=== PATIENT | male | born 1955 | race Caucasian/White ===

== ENCOUNTER 2017-09-18 16:27 | Emergency (ER) | payer MEDICARE, BC ==
[2017-09-18 17:08] VITALS: BP 175/106
--- NOTE | 2017-09-18 18:13 | EDM.PDOC ---
ED HPI GENERAL MEDICAL PROBLEM - General Chief Complaint: General Stated Complaint: EDEMA,HANDS, FEET Time Seen by Provider: 09/18/17 18:00 Source of Information: Reports: Patient, Family, RN Notes Reviewed History Limitations: Reports: No Limitations - History of Present Illness INITIAL COMMENTS - FREE TEXT/NARRATIVE: 62-year-old gentleman presents emergency department today complaint of bilateral leg swelling and bilateral hand swelling he recently had surgery done on 10 September for rotator cuff states he did not receive much fluids postoperatively he's done well postoperatively new Medication of hydrocodone which he is using for pain control he also complains of some shortness of breath and tightness in the chest Generalized Pain Score (Numeric/FACES): 7 - Related Data Allergies Allergy/AdvReac Type Severity Reaction Status Date / Time No Known Allergies Allergy Verified 05/25/16 07:56 Home Meds: Home Meds Acetaminophen with Codeine [Tylenol with Codeine #3 Tablet] 1 - 2 tab PO Q4HR PRN 06/03/15 [History] Albuterol [Proair HFA] 2 puff INH QID PRN 06/03/15 [History] Ibuprofen 800 mg PO TID 06/03/15 [History] Mometasone Furoate [Nasonex] 2 sprays NASLF DAILY PRN 06/03/15 [History] Niacin 1,000 mg PO DAILY 06/03/15 [History] Matthews-3 Fatty Acids [Matthews-3] 3,000 mg PO DAILY 06/03/15 [History] Omeprazole [priLOSEC OTC] 20 mg PO DAILY 06/03/15 [History] Cyanocobalamin (Vitamin B12) [Vitamin B12] 1,000 mcg PO DAILY 05/21/16 [History] Gabapentin [Neurontin] 600 mg PO QID 05/21/16 [History] Triamcinolone Acetonide [Kenalog 0.1% Crm] 1 applic TOP BID 05/21/16 [History] Hydrocodone/Acetaminophen [Hydrocodon-Acetaminophn 10-325] 1 tab PO ASDIRECTED PRN 09/18/17 [History] Tamsulosin [Flomax] 0.4 mg PO DAILY 09/18/17 [History] Past Medical History HEENT History: Reports: Impaired Vision Other HEENT History: wears glasses Cardiovascular History: Reports: High Cholesterol, SOB on Exertion Respiratory History: Reports: Other (See Below) Other Respiratory History: asbetoes Gastrointestinal History: Reports: Chronic Diarrhea, Gastritis, GI Bleed, Hemorrhoids Genitourinary History: Reports: Prostate Disorder Musculoskeletal History: Reports: Arthritis, Back Pain, Chronic, Neck Pain, Chronic, Other (See Below) Other Musculoskeletal History: polymyalgia Psychiatric History: Reports: Depression, Psych Hospitalization(s), Psychosis, Other (See Below) Other Psychiatric History: hears alarms ringing Endocrine/Metabolic History: Reports: Obesity/BMI 30+, Vitamin D Deficiency - Infectious Disease History Infectious Disease History: Reports: Chicken Pox, Herpes, Other (See Below) Other Infectious Disease History: genital herpes - Past Surgical History GI Surgical History: Reports: Cholecystectomy, Colonoscopy, Hernia, Abdominal Social & Family History - Family History Family Medical History: Noncontributory - Tobacco Use Smoking Status *Q: Never Smoker Years of Tobacco use: 30 Packs/Tins Daily: 0.5 Used Tobacco, but Quit: Yes Month Tobacco Last Used: 2000 Second Hand Smoke Exposure: No - Caffeine Use Caffeine Use: Reports: Coffee - Alcohol Use Days Per Week of Alcohol Use: 0 - Recreational Drug Use Recreational Drug Use: No ED ROS GENERAL - Review of Systems Review Of Systems: See Below Constitutional: Reports: No Symptoms HEENT: Reports: No Symptoms Respiratory: Reports: Shortness of Breath. Denies: Wheezing, Cough, Sputum Cardiovascular: Reports: Edema. Denies: Chest Pain GI/Abdominal: Reports: No Symptoms : Reports: No Symptoms Musculoskeletal: Reports: No Symptoms Skin: Reports: No Symptoms Neurological: Reports: No Symptoms ED EXAM, GENERAL - Physical Exam Exam: See Below Free Text/Narrative:: Examination of the lower extremities he does have +3 pitting edema bilaterally up to the knee also has edema in both hands to the point where he cannot close his fist bilaterally pedal pulse is +2 radial pulse +2 Exam Limited By: No Limitations General Appearance: Alert, WD/WN, No Apparent Distress Eye Exam: Bilateral Eye: Normal Inspection Head: Atraumatic, Normocephalic Neck: Normal Inspection, Supple, Non-Tender, Full Range of Motion Respiratory/Chest: No Respiratory Distress, Lungs Clear, Normal Breath Sounds, No Accessory Muscle Use Cardiovascular: Regular Rate, Rhythm, No Murmur GI/Abdominal: Soft, Non-Tender Course - Vital Signs Last Recorded V/S: Last Vital Signs Temp 97.2 F 09/18/17 17:40 Pulse 76 09/18/17 17:40 Resp 16 09/18/17 17:40 BP 175/106 H 09/18/17 17:40 Pulse Ox 93 L 09/18/17 17:40 - Orders/Labs/Meds Orders: Active Orders 24 hr Category Date Time Status Cardiac Monitoring [RC] .As Directed Care 09/18/17 18:08 Active EKG Documentation Completion [RC] ASDIRECTED Care 09/18/17 18:08 Active Chest 2V [CR] Stat Exams 09/18/17 18:08 Taken EKG 12 Lead [EK] Stat Ther 09/18/17 18:08 Ordered Labs: Laboratory Tests 09/18/17 09/18/17 Range/Units 18:08 18:08 WBC 7.6 (4.5-11.0) K/uL RBC 4.36 (4.30-5.90) M/uL Hgb 13.3 D (12.0-15.0) g/dL Hct 38.4 L (40.0-54.0) % MCV 88 (80-98) fL MCH 31 (27-31) pg MCHC 35 (32-36) % Plt Count 226 (150-400) K/uL Neut % (Auto) 56 (36-66) % Lymph % (Auto) 29 (24-44) % [place] % (Auto) 10 H (2-6) % Eos % (Auto) 5 H (2-4) % Baso % (Auto) 1 (0-1) % Sodium 142 (140-148) mmol/L Potassium 4.4 (3.6-5.2) mmol/L Chloride 107 (100-108) mmol/L Carbon Dioxide 29 (21-32) mmol/L Anion Gap 5.7 (5.0-14.0) mmol/L BUN 24 H (7-18) mg/dL Creatinine 1.0 (0.8-1.3) mg/dL Est Cr Clr Drug Dosing 70.00 mL/min Estimated GFR (MDRD) > 60 (>60) Glucose 97 (74-106) mg/dL Calcium 8.7 (8.5-10.1) mg/dL Total Bilirubin 0.2 (0.2-1.0) mg/dL AST 24 (15-37) U/L ALT 45 (12-78) U/L Alkaline Phosphatase 68 (46-116) U/L CK-MB (CK-2) 2.1 (0-3.6) mg/mL Troponin I < 0.017 (0.000-0.056) ng/mL NT-Pro-B Natriuret Pep 14 (5-125) pg/mL Total Protein 6.2 L (6.4-8.2) g/dL Albumin 3.4 (3.4-5.0) g/dL Globulin 2.8 (2.3-3.5) g/dL Albumin/Globulin Ratio 1.2 (1.2-2.2) Departure - Departure Time of Disposition: 19:31 Disposition: Home, Self-Care 01 Condition: Good Clinical Impression: Peripheral edema - Discharge Information Referrals: Uriel Giron MD [Primary Care Provider] - Forms: ED Department Discharge Additional Instructions: Recommend stop taking hydrocodone, please follow-up with your surgical care provider - My Orders Last 24 Hours: My Active Orders 09/18/17 18:08 Cardiac Monitoring [RC] .As Directed EKG Documentation Completion [RC] ASDIRECTED Chest 2V [CR] Stat EKG 12 Lead [EK] Stat - Assessment/Plan Last 24 Hours: My Active Orders 09/18/17 18:08 Cardiac Monitoring [RC] .As Directed EKG Documentation Completion [RC] ASDIRECTED Chest 2V [CR] Stat EKG 12 Lead [EK] Stat Plan: Assessment Acuity = acute Site and laterality = peripheral edema upper and lower extremities Etiology = possibly related to hydrocodone Manifestations = dyspnea Location of injury = Home Lab values = CBC, CMP, troponin, BNP, chest x-ray unremarkable EKG demonstrates right bundle branch block otherwise unremarkable Plan I did review lab work EKG chest x-ray results with him he agreed to stop using the hydrocodone he is going to use Tylenol No. 3 which she has used and passed for pain control and he'll keep his regular follow-up with surgery This note was dictated using [employer] voice recognition software please call with any questions on syntax or jose.
--- NOTE | 2017-09-20 09:16 | CR ---
Chest 2V HISTORY: Chest Pain COMPARISON: None FINDINGS: Lungs appear clear and normally aerated. Cardiomediastinal silhouette is within normal limits. No vas cular redistribution or pleural fluid can be seen. Bony structures and soft tissues are unremarkable. IMPRESSION: No acute chest abnormality identified.
== END 2017-09-18 19:42 | disposition home or self-care (01) ==
LOC: JP.ED 16:27
DX: R60.0 Localized edema (principal); R06.00 Dyspnea, unspecified; I45.10 Unspecified right bundle-branch block; E78.00 Pure hypercholesterolemia, unspecified; Z87.891 Personal history of nicotine dependence
CPT/HCPCS: 36415; 71046; 71046-26; 80053; 82553; 83880; 84484; 85025; 93005; 99284-25; 99285

== ENCOUNTER 2020-08-30 06:34 | Day surgery (SDC) | payer BC, MEDICARE ==
[2020-08-30] MEDS ORDERED: fentaNYL 100 MCG/2 ML SDV ONE (07:04)
[2020-08-30] MEDS ORDERED: Midazolam 1 MG/ML 2 ML SDV ONE (07:04)
[2020-08-30] MEDS ORDERED: Propofol 200 MG/20 ML SDV ONE (07:05)
[2020-08-30] MEDS ORDERED: Dextrose 5%-Lactated Ringers 1,000 ML IV SCH (07:15)
[2020-08-30 09:59] VITALS: BP 101/58; PULSE 70
--- NOTE | 2020-09-16 07:54 | OR ---
DATE OF PROCEDURE: 08/30/2020 SURGEON: Tavares Caballero MD PREOPERATIVE DIAGNOSES: Indication for screening colonoscopy with positive family history (father) of colon cancer. POSTOPERATIVE DIAGNOSES: Limited left colonic diverticulosis with no polyps or other signs of neoplasia. OPERATIVE PROCEDURE: Flexible colonoscopy. ANESTHESIA: IV sedation. INDICATIONS FOR PROCEDURE: A 65-year-old male referred for a flexible screening colonoscopy. Does have a family history of his father having colon carcinoma. Plan is to proceed with a colonoscopy with biopsies and/or polypectomy as indicated. Potential risks including bleeding and perforation were discussed, and the patient wishes to proceed. DETAILS OF PROCEDURE: The patient was taken to the operating room and placed in a left lateral decubitus position. IV sedation was administered after which the initial digital rectal exam was performed and was unremarkable. Colonoscope was then passed into the rectum with retroflexion revealing uncomplicated hemorrhoidal columns. Scope was eventually passed to the level of the cecum. The prep was quite good with only small amount of liquid stool present. The patient had some uncomplicated left colonic diverticulosis. Otherwise, there were no areas of colitis and there were no polyps or other signs of neoplasia. Scope was then withdrawn, the above findings reconfirmed, and the procedure then concluded. Due to the family history, the recommendation would be to repeat the colonoscopy in 5 years. Tavares Caballero MD /[id number]
== END 2020-08-30 10:05 | disposition home or self-care (01) ==
LOC: JP.SDS 06:34
PROVIDERS: ATTEND Surgery
DX: Z12.11 Encounter for screening for malignant neoplasm of colon (principal); K57.30 Diverticulosis of large intestine without perforation or abscess without bleeding; K64.9 Unspecified hemorrhoids; J44.9 Chronic obstructive pulmonary disease, unspecified; E78.5 Hyperlipidemia, unspecified; E11.9 Type 2 diabetes mellitus without complications; Z80.0 Family history of malignant neoplasm of digestive organs
CPT/HCPCS: G0105; J2250; J2704; J3010; J7121